=== PATIENT | female | born 1980 | race American Indian/Alaskan Native ===

== ENCOUNTER 2017-11-24 09:20 | Outpatient (CLI) | payer OTHER ==
--- NOTE | 2017-11-24 16:29 | XRay Report ---
RIGHT FOOT THREE VIEWS: 11/24/17 09:34:00 CLINICAL: Mitochondrial myopathy. Pain. FINDINGS: No fracture or dislocation. Hallux valgus deformity. The fourth and fifth metatarsals are congenitally short and the fourth is particularly short. Mild nonspecific soft tissue swelling of the forefoot and midfoot. No soft tissue air or foreign body. IMPRESSION: Mild nonspecific soft tissue swelling. 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 Hallux valgus deformity.
--- NOTE | 2017-11-24 16:31 | XRay Report ---
XRAY RIGHT HIP TWO VIEWS: 11/24/17 09:20:00 CLINICAL: Pain. Mitochondrial myopathy. FINDINGS: No fracture or dislocation.Mild osteoarthritis with superolateral joint space narrowing and mild superior acetabular eburnation. The left hip is normal. The pelvic bones are intact. The SI joints are normal. Pelvic phleboliths. Normal soft tissues. IMPRESSION: Mild osteoarthritis of the right hip.
--- NOTE | 2017-11-24 16:31 | XRay Report ---
XRAY RIGHT KNEE 2 THREE VIEWS: 11/24/17 09:20:00 CLINICAL: Pain. Mitochondrial myopathy. FINDINGS: No fracture or dislocation. The medial and lateral joints are normal. Mild patellofemoral joint arthritis with a small inferior osteophyte. No joint effusion.Normal soft tissues. IMPRESSION: Mild patellofemoral joint osteoarthritis and otherwise normal.
== END 2017-11-24 09:21 | disposition home or self-care (01) ==
LOC: XRAY 09:20
PROVIDERS: ATTEND Internal Medicine
DX: Z02.71 Encounter for disability determination (principal); M16.11 Unilateral primary osteoarthritis, right hip; M17.11 Unilateral primary osteoarthritis, right knee; M20.11 Hallux valgus (acquired), right foot; Z88.0 Allergy status to penicillin; Z91.040 Latex allergy status; Z88.2 Allergy status to sulfonamides; Z88.1 Allergy status to other antibiotic agents